=== PATIENT | male | born 1995 | race Caucasian/White ===

== ENCOUNTER 2017-11-06 15:06 | Emergency (ER) | payer OTHER ==
[2017-11-06 15:09] VITALS: BMI 32.8
[2017-11-06] MEDS ORDERED: NS 1000 ML 1,000 ML IV ONE (15:33)
[2017-11-06] MEDS ORDERED: PHENERGAN INJ 25 MG IV ONE (15:33)
[2017-11-06] MEDS ORDERED: TORADOL 30 MG VIAL IVP ONE (15:34)
--- NOTE | 2017-11-06 15:34 | DR.ABDMALE ---
HPI - Time seen Time seen: 15:22 - PCP Primary Care Physician: NFD - Complaint Chief Complaint Doctors Comments: abdominal pain between epigastrium to umbilicus. this started about 4 hrs [employer]IOR [employer] here. He described this as if someone is ripping him. It's non-radiating. He has had nausea + vomitting. Chief Complaint:: PT. C/O ABDOMINAL PAIN THAT BEGAN 4 HOURS AGO. PT. HAS A HX. OF PANCREATITIS. PT. ALSO C/O N/V. - Reviewed Nurses Notes Review: Yes - Mode of arrival Mode of Arrival: Wheelchair - Timing Onset of Chief Complaint: 11/06/17 PMH - PMH Past Medical History: Yes Past Medical History Comment: PANCREATITIS Past Surgical History: Yes Surgical History: Cholecystectomy - Family History History of Family Medical Conditions: Yes Family Medical History: Diabetes Mellitus, Cancer - Social History Does patient currently use any type of tobacco product: No Have you used tobacco products in the last 12 months: No Type of Tobacco Use: None Does any household member use tobacco: No Alcohol Use: None Do you use any recreational Drugs:: No Lives With: Spouse Lives Where: Home - infectious screening In the last 2 months have you had wt loss of >10#?: NO Have you had fever, night sweats or hemotysis?: No Have you traveled outside the country in the last 6 months?: No Isolation: Standard ROS - Review of Systems Constitutional: No Symptoms Reported Eyes: No Symptoms Reported ENTM: No Symptoms Reported Respiratoy: No Symptoms Reported Cardiovascular: No Symptoms Reported Gastrointestinal/Abdominal: Abdominal Pain, Nausea, Vomiting Genitourinary: No Symptoms Reported Neurological: No Symptoms Reported Musculoskeletal: No Symptoms Reported Integumentary: No Symptoms Reported Hematologic/Lymphatic: No Symptoms Reported Endocrine: No Symptoms Reported Psychiatric: No Symptoms Reported All Other Systems: Reviewed and Negative PE - Vital Signs Vital Signs: Temp Pulse Resp BP Pulse Ox 11/06/17 15:06 97.2 F L 81 17 138/84 97 08/16/15 10:14 128/85 - General Limitations: No Limitations General Appearance: Alert, In No Apparent Distress - Head Head Exam: Normal Inspection - Eyes Eye exam: Normal Appearance - ENT ENT Exam: Normal Exam - Neck Neck Exam: Normal Inspection - Chest Chest Inspection: Normal Inspection - Respiratory Respiratory Exam: Normal Lung Sounds Bilat - Cardiovascular Cardiovascular Exam: Regular Rate, Normal Rhythm, +S1, +S2 - Abdominal Exam Abdominal Exam: Normal Inspection, Normal Bowel Sounds, Soft, Tenderness Abdominal Tenderness: Epigastrium - Rectal Rectal Exam: Deferred - Back Back Exam: Normal Inspection - Extremeties Extremities Exam: Normal Inspection - Exam: Male: Deferred - Neurologic Neurological Exam: Alert, Oriented X3 - Psychiatric Psychiatric Exam: Normal Affect, Normal Mood - Skin Skin Exam: Warm, Dry, Intact, Normal Color Course - Reevaluation 1st: Improved 2nd: Improved - Education/Counseling Education/Counseling: Patient, Family, Education, Counseling Educated On: Treatment, Diagnosis, Prognosis, Needs for Follow Up ROR - Labs Reviewed Result Diagrams: 11/06/17 15:40 11/06/17 15:40 Laboratory: WBC 17.9 X10^3/uL (3.6-10.0) H 11/06/17 15:40 RBC 5.56 X10^6/uL (4.7-6.0) 11/06/17 15:40 Hgb 17.7 g/dL (13.5-18.0) 11/06/17 15:40 Hct 50.0 % (42.0-54.0) 11/06/17 15:40 MCV 90.0 fL (80.0-100.0) 11/06/17 15:40 MCH 31.8 pg (27.0-34.0) 11/06/17 15:40 MCHC 35.3 g/dL (33.0-35.0) H 11/06/17 15:40 RDW 12.3 % (11.6-16.5) 11/06/17 15:40 Plt Count 321 X10^3/uL (150.0-450.0) 11/06/17 15:40 MPV 8.3 fL (7.4-11.0) 11/06/17 15:40 Neut % (Auto) 89.9 % (42.0-75.0) H 11/06/17 15:40 Lymph % (Auto) 4.4 % (21.0-51.0) L 11/06/17 15:40 [place] % (Auto) 4.2 % (0.0-13.0) 11/06/17 15:40 Eos % (Auto) 1.2 % (0.9-2.9) 11/06/17 15:40 Baso % (Auto) 0.3 % (0.2-1.0) 11/06/17 15:40 Neut # (Auto) 16.1 x10^3/uL (2.2-4.8) H 11/06/17 15:40 Lymph # (Auto) 0.8 X10^3/uL (1.3-2.9) L 11/06/17 15:40 [place] # (Auto) 0.8 x10^3/uL (0.3-0.8) 11/06/17 15:40 Eos # (Auto) 0.2 x10^3/uL (0.0-0.2) 11/06/17 15:40 Baso # (Auto) 0.1 X10^3/uL (0.0-0.1) 11/06/17 15:40 Absolute Nucleated RBC 0.0 /100WBC 11/06/17 15:40 Sodium 138 mmol/L (136-145) 11/06/17 15:40 Corrected Sodium 139 mmol/L (136-145) 11/06/17 15:40 Potassium 4.0 mmol/L (3.5-5.1) 11/06/17 15:40 Chloride 100 mmol/L (98-107) 11/06/17 15:40 Carbon Dioxide 29.9 mmol/L (21-32) 11/06/17 15:40 BUN 14 mg/dL (7-18) 11/06/17 15:40 Creatinine 1.28 mg/dL (0.70-1.30) 11/06/17 15:40 Est GFR (MDRD) Af Amer > 60 (>60) 11/06/17 15:40 Est GFR (MDRD) Non-Af > 60 (>60) 11/06/17 15:40 Glucose 132 mg/dL (65-99) H 11/06/17 15:40 Calcium 9.2 mg/dL (8.5-10.1) 11/06/17 15:40 Corrected Calcium TNP 11/06/17 15:40 Total Bilirubin 0.80 mg/dL (0.2-1.0) 11/06/17 15:40 AST 22 Units/L (15-37) 11/06/17 15:40 ALT 46 Units/L (12-78) 11/06/17 15:40 Alkaline Phosphatase 106 Units/L (46-116) 11/06/17 15:40 Total Protein 8.8 g/dL (6.4-8.2) H 11/06/17 15:40 Albumin 4.6 g/dL (3.4-5.0) 11/06/17 15:40 Globulin 4.2 g/dL (2.5-4.5) 11/06/17 15:40 Albumin/Globulin Ratio 1.1 Ratio (1.1-2.1) 11/06/17 15:40 Amylase 61 Units/L (25-115) 11/06/17 15:40 Lipase 178 Units/L (73-393) 11/06/17 15:40 - XRAY XRAY Interpreted by: Radiologist (Contrasted CT Abd./pelvis: no acute pathology. ), Self (normal) - Diagnosis Discharge Problem: Epigastric abdominal pain - Discharge Plan Disposition: HOME, SELF-CARE Condition: Stable - Follow ups/Referrals Follow ups/Referrals: NFD,None [Primary Care Provider] - 3 days - Instructions Instructions: Abdominal Pain, Adult, [id number]
[2017-11-06] MEDS ORDERED: NS 1000 ML 1,000 ML ONE (15:43)
[2017-11-06] MEDS ORDERED: TORADOL 30 MG VIAL ONE (15:44)
[2017-11-06] MEDS ORDERED: PHENERGAN INJ 25 MG ONE (15:44)
[2017-11-06 15:56] LABS: BASOPHILS # (AUTO) 0.1 X10^3/uL (0.0-0.1); BASOPHILS % (AUTO) 0.3 % (0.2-1.0); EOSINOPHILS # (AUTO) 0.2 x10^3/uL (0.0-0.2); EOSINOPHILS % (AUTO) 1.2 % (0.9-2.9); HEMOGLOBIN 17.7 g/dL (13.5-18.0); LYMPHOCYTES # (AUTO) 0.8 X10^3/uL (1.3-2.9); LYMPHOCYTES % (AUTO) 4.4 % (21.0-51.0); MEAN CORPUSCULAR HEMOGLOBIN 31.8 pg (27.0-34.0); MEAN CORPUSCULAR HGB CONC 35.3 g/dL (33.0-35.0); MEAN PLATELET VOLUME 8.3 fL (7.4-11.0); MONOCYTES # (AUTO) 0.8 x10^3/uL (0.3-0.8); MONOCYTES % (AUTO) 4.2 % (0.0-13.0); NEUTROPHILS # (AUTO) 16.1 x10^3/uL (2.2-4.8); NEUTROPHILS % (AUTO) 89.9 % (42.0-75.0); PLATELET COUNT 321 X10^3/uL (150.0-450.0); RED BLOOD COUNT 5.56 X10^6/uL (4.7-6.0); RED CELL DISTRIBUTION WIDTH 12.3 % (11.6-16.5); WHITE BLOOD COUNT 17.9 X10^3/uL (3.6-10.0)
[2017-11-06 16:22] LABS: ALANINE AMINOTRANSFERASE 46 Units/L (12-78); ALBUMIN 4.6 g/dL (3.4-5.0); ALKALINE PHOSPHATASE 106 Units/L (46-116); AMYLASE 61 Units/L (25-115); ASPARTATE AMINO TRANSFERASE 22 Units/L (15-37); BLOOD UREA NITROGEN 14 mg/dL (7-18); CALCIUM 9.2 mg/dL (8.5-10.1); CARBON DIOXIDE 29.9 mmol/L (21-32); CHLORIDE 100 mmol/L (98-107); COR NA(FOR HYPERGLY) 139 mmol/L (136-145); CREATININE 1.28 mg/dL (0.70-1.30); LIPASE 178 Units/L (73-393); SODIUM 138 mmol/L (136-145); TOTAL PROTEIN 8.8 g/dL (6.4-8.2); eGFR BLACK RACES > 60 (>60); eGFR NON BLACK RACES > 60 (>60)
--- NOTE | 2017-11-06 16:58 | RAD ---
Examination: Portable AP chest History: Abdominal pain Findings: Normal appearance of heart, lungs, mediastinum and pleural spaces. Impression: No acute or significant findings. Reported By:
[2017-11-06] MEDS ORDERED: NS 500 ML IV 500 ML IV ONE (17:22)
--- NOTE | 2017-11-06 18:15 | CT ---
HISTORY: Abdominal pain. Study: CT abdomen and pelvis with contrast Comparison: CT abdomen/pelvis dated August 16, 2015. Technique: Multiple axial images of the abdomen and pelvis were obtained from the lung bases to the pubic symphy sis after the administration of IV contrast. Dose reduction techniques including Automated Exposure Control (AEC) and adjustment of mA and kV were utilized. Findings: The visualized portions of the lung bases are unremarkable. The liver, spleen, pancreas, kidneys, an d adrenal glands are unremarkable in their CT appearance. The gallbladder is surgically absent. No s ignificant mesenteric lymphadenopathy or stranding can be observed. No free fluid or free air is see n within the abdomen. Limited evaluation of the large and small bowel secondary to lack of oral cont rast and collapse. The appendix appears normal. The urinary bladder is grossly unremarkable. The bon y structures are grossly intact. IMPRESSION: No CT evidence of acute abdominal/pelvic pathology. Reported By:
[2017-11-06] MEDS ORDERED: MORPHINE SULFATE INJ 2 MG INJ IVP ONE (18:23)
[2017-11-06] MEDS ORDERED: MORPHINE SULFATE INJ 2 MG INJ ONE (18:24)
[2017-11-06 19:57] VITALS: BP 122/78
== END 2017-11-06 19:57 | disposition home or self-care (01) ==
LOC: ER 15:15
DX: R10.13 Epigastric pain (principal)
CPT/HCPCS: 36415; 71045; 74177; 80053; 82150; 83690; 85025; 96365; 96374; 96375; 99283; 99284; A4222; J1885; J2270; J2550

== ENCOUNTER 2020-05-08 11:08 | Observation (INO) ==
--- NOTE | 2020-05-08 11:11 | DR.ABDMALE ---
HPI Time seen Time Seen by Provider: 05/08/20 11:10 HPI comment HPI Comment: PATIENT IS 24YR OLD MALE IN ER WITH ABDOMINAL PAIN TODAY AND NAUSEA AND VOMITING TIMES 3 DAYS. PATIENT SAID PAIN IS DIFFUSED, 10/10 AND BURNING AND SHARP. PAIN RADIATING TO THE BACK. PATIENT IS NOT KEEPING DOWN FOOD OR FLUIDS. HE IS WEAK. HISTORY PACREATITIS. NO FEVER OR DYSURIA. HAVE HAD CHOLECYSTECTOMY IN THE PAST. Complaint Chief Complaint Doctors Comments: ABDOMINAL PAIN TODAY, NAUSEA AND VOMITING TIMES 3 DAYS. COVID-19 Coronavirus risk:travel/contact w/high risk person: No Has patient experienced Coronavirus symptoms: No Reviewed Nurses Notes Review: Yes Mode of arrival Mode of Arrival: Ambulatory Timing Came on: Suddenly Duration Duration: Constant Duration: Days Location Location: Diffuse Severity Severity: Severe Quality Quality: Burning and Sharp Context Onset: Suddenly History of: Abdominal surgery (HAVE HAD CHOLECYSTECTOMY.) Modifying factors Worsening Factors: Food Improving Factors: Lying Still Associated signs and symptoms Associated Signs and Symptoms: Nausea and Vomiting Other history Other History: HISTORY PACREATITIS. PMH PMH Past Surgical History: Yes Surgical History: Cholecystectomy Family History Family Medical History: Diabetes Mellitus and Cancer Social History Do you use any recreational Drugs:: No ROS Review of Systems Constitutional: See HPI, Weakness and Fatigue; negative Fever Eyes: No Symptoms Reported and See HPI ENTM: No Symptoms Reported and See HPI; negative Nose Discharge and Nose Congestion Respiratoy: No Symptoms Reported and See HPI; negative Moist Cough, Short of Breath and Wheezing Cardiovascular: No Symptoms Reported and See HPI; negative Chest Pain, Edema and Palpitations Gastrointestinal/Abdominal: No Symptoms Reported, See HPI, Abdominal Pain, Nausea and Vomiting; negative Constipation and Diarrhea Genitourinary: No Symptoms Reported and See HPI; negative Dysuria, Frequency and Hematuria Neurological: See HPI and Weakness; negative Headache and Dizziness Musculoskeletal: No Symptoms Reported and See HPI; negative Back Pain and Muscle Pain Integumentary: No Symptoms Reported and See HPI; negative Change in Color, Rash and Juandice Hematologic/Lymphatic: No Symptoms Reported and See HPI; negative Easy Bruising and Swollen Glands Endocrine: No Symptoms Reported and See HPI; negative Increased Thirst and Inc reased Urine Psychiatric: No Symptoms Reported and See HPI All Other Systems: Reviewed and Negative PE Vital Signs Vital Signs: Temp Pulse Resp BP BP Pulse Ox 05/08/20 18:15 72 98 05/08/20 18:00 68 98 05/08/20 17:45 77 98 05/08/20 17:42 73 98 05/08/20 13:31 20 05/08/20 12:21 18 05/08/20 12:10 18 05/08/20 11:44 71 18 111/68 98 05/08/20 11:40 18 05/08/20 11:13 98.3 F 106 H 24 143/94 98 07/16/19 11:17 125/81 General Limitations: No Limitations General Appearance: Alert and In No Apparent Distress Head Head Exam: Normal Inspection Eyes Eye exam: Normal Appearance and PERRL; negative Scleral Icterus and Conjunctival Injection ENT ENT Exam: Normal Exam, Normal Oropharynx, Normal External Ear Exam and TM's Normal Bilaterally Neck Neck Exam: Normal Inspection and Trachea Midline; negative Tenderness and Lymphadenopathy Chest Chest Inspection: Normal Inspection and Symmetric Chest Wall Rise; negative Tenderness Respiratory Respiratory Exam: Normal Lung Sounds Bilat; negative Accessory Muscle Use, Chest Wall Tenderness and Respiratory Distress Respiratory Exam: Bilateral: Clear to Auscultation Cardiovascular Cardiovascular Exam: Regular Rate, Normal Rhythm and Normal Heart Sounds; negative Systolic Murmur and Diastolic Murmur Abdominal Exam Abdominal Exam: Normal Inspection, Normal Bowel Sounds, Soft and Tenderness; negative Organomegaly and Mass Abdominal Tenderness: Severe Rectal Rectal Exam: Deferred Back Back Exam: Normal Inspection; negative (R) CVA Tenderness and (L) CVA Tenderness Extremeties Extremities Exam: Normal Inspection and Normal Capillary Refill; negative Tenderness, Edema and Calf Tenderness Exam: Male: Deferred Neurologic Neurological Exam: Alert, Oriented X3 and CN II-XII Intact; negative Motor Sensory Deficit Psychiatric Psychiatric Exam: Normal Affect and Normal Mood Skin Skin Exam: Warm, Dry, Intact and Normal Color MDM Differential Diagnosis Differential Diagnosis: Bowel Obstruction, Constipation, Diverticular disease, Gastritus/PUD, Gastroenteritis, Inflammatory BD, Pancreatitis, Urinary tract infection and Urolithiasis COURSE Treatment Treatment: SEE ORDERS. NS 1L IV BOLUS, DEMOROL 25MG IV, FOFRAN 4MG IV. PAIN SLIGHTLY RELIEVED. NAUSEA IMPROVED. DEMOROL 25MG IV. PATIENT STILL HAVING SEVERE PAIN. TORADOL 30MG IV AND PEPCID 20MG IVPB. Reevaluation 1st: Unchanged (NAUSEA IMPROVED. PAIN SLIGHTLY IMPROVED.STILL 9/10 PAIN.) 2nd: Improved (PAIN SLIGHTLY IMPROVED 8/10.) 3rd: Improved (PAIN IMPROVING, HAVING 7/10 PAIN/) Consultation Consultation Comments: SURGICAL CONSULT. DR. SPARROW IN ER AND HAVE EVALUATED PATIENT. RECOMMEND TO ADMIT PATIENT. DR. BAILEY NURSING INFORMATION SYSTEMS COORDINATOR FOR MEDICINE WILL ADMIT PATIENT. Education/Counseling Education/Counseling: Patient Educated On: Diagnosis ROR Labs Reviewed Laboratory Results Reviewed?: Yes Result Diagrams: 05/09/20 05:35 05/09/20 05:35 Laboratory: WBC 11.8 X10^3/uL (3.6-10.0) H 05/08/20 11: RBC 5.40 X10^6/uL (4.7-6.0) 05/08/20 11:21 Hgb 16.8 g/dL (13.5-18.0) 05/08/20 11: Hct 48.0 % (42.0-54.0) 05/08/20 11:21 MCV 88.7 fL (80.0-100.0) 05/08/20 11:21 MCH 31.2 pg (27.0-34.0) 05/08/20 11:21 MCHC 35.1 g/dL (33.0-35.0) H 05/08/20 11: RDW 12.9 % (11.6-16.5) 05/08/20 11:21 Plt Count 391 X10^3/uL (150.0-450.0) 05/08/20 11: MPV 7.5 fL (7.4-11.0) 05/08/20 11: Neut % (Auto) 62.7 % (42.0-75.0) 05/08/20 11:21 Lymph % (Auto) 28.2 % (21.0-51.0) 05/08/20 11:21 [place] % (Auto) 7.6 % (0.0-13.0) 05/08/20 11: Eos % (Auto) 0.9 % (0.9-2.9) 05/08/20 11:21 Baso % (Auto) 0.6 % (0.2-1.0) 05/08/20 11:21 Neut # (Auto) 7.4 x10^3/uL (2.2-4.8) H 05/08/20 11:21 Lymph # (Auto) 3.3 X10^3/uL (1.3-2.9) H 05/08/20 11:21 [place] # (Auto) 0.9 x10^3/uL (0.3-0.8) H 05/08/20 11:21 Eos # (Auto) 0.1 x10^3/uL (0.0-0.2) 05/08/20 11:21 Baso # (Auto) 0.1 X10^3/uL (0.0-0.1) 05/08/20 11:21 Absolute Nucleated RBC 0.0 /100WBC 05/08/20 11:21 Sodium 139 mmol/L (136-145) 05/08/20 11:21 Corrected Sodium TNP 05/08/20 11:21 Potassium 3.4 mmol/L (3.5-5.1) L 05/08/20 11:21 Chloride 99 mmol/L (98-107) 05/08/20 11:21 Carbon Dioxide 26.2 mmol/L (21-32) 05/08/20 11:21 BUN 7 mg/dL (7-18) 05/08/20 11:21 Creatinine 1.15 mg/dL (0.70-1.30) 05/08/20 11:21 Est GFR (MDRD) Af Amer > 60 (>60) 05/08/20 11:21 Est GFR (MDRD) Non-Af > 60 (>60) 05/08/20 11:21 Glucose 103 mg/dL (65-99) H 05/08/20 11:21 Calcium 9.6 mg/dL (8.5-10.1) 05/08/20 11:21 Corrected Calcium TNP 05/08/20 11:21 Total Bilirubin 0.80 mg/dL (0.2-1.0) 05/08/20 11:21 AST 21 Units/L (15-37) 05/08/20 11:21 ALT 45 Units/L (12-78) 05/08/20 11:21 Alkaline Phosphatase 95 Units/L (46-116) 05/08/20 11:21 Total Protein 8.6 g/dL (6.4-8.2) H 05/08/20 11:21 Albumin 4.4 g/dL (3.4-5.0) 05/08/20 11:21 Globulin 4.2 g/dL (2.5-4.5) 05/08/20 11:21 Albumin/Globulin Ratio 1.0 Ratio (1.1-2.1) L 05/08/20 11:21 Amylase 105 Units/L (25-115) 05/08/20 11:21 Lipase 438 Units/L (73-393) H 05/08/20 11:21 XRAY XRAY Interpreted by: Radiologist (REPORTS NOTED AND DISCUSSED WITH PATIENT.) and Self Opioid Opioid Risk Tool Age (Omer box if 16-45): Yes History of Preadolescent Sexual Abuse: No Total: 1 Total Score Risk Category: Low Risk Copyright: Walter ROCHA predicting aberrant behaviors Diagnosis Discharge Problem: Acute pancreatitis, Abdominal pain Instructions Instructions: Chronic Pancreatitis Acute Pancreatitis, [id number] Abdominal Pain, Adult, [id number] Nausea and Vomiting, Adult, [id number] Forms: Precautions for COVID19 Patient Portal Social Distancing
[2020-05-08] MEDS ORDERED: ZOFRAN INJ 4 MG VIAL IVP ONE (11:22)
[2020-05-08] MEDS ORDERED: DEMEROL INJ IVP ONE ×2 (11:22→12:10)
[2020-05-08] MEDS ORDERED: NS 1000 ML 1,000 ML IV ONE (11:23)
[2020-05-08] MEDS ORDERED: ZOFRAN INJ 4 MG VIAL ONE ×2 (11:34→20:02)
[2020-05-08] MEDS ORDERED: NS 1000 ML 1,000 ML ONE ×2 (11:34→20:03)
[2020-05-08] MEDS ORDERED: DEMEROL INJ ONE ×2 (11:34→12:10)
[2020-05-08 11:35] LABS: BASOPHILS # (AUTO) 0.1 X10^3/uL (0.0-0.1); BASOPHILS % (AUTO) 0.6 % (0.2-1.0); EOSINOPHILS # (AUTO) 0.1 x10^3/uL (0.0-0.2); EOSINOPHILS % (AUTO) 0.9 % (0.9-2.9); HEMOGLOBIN 16.8 g/dL (13.5-18.0); LYMPHOCYTES # (AUTO) 3.3 X10^3/uL (1.3-2.9); LYMPHOCYTES % (AUTO) 28.2 % (21.0-51.0); MEAN CORPUSCULAR HEMOGLOBIN 31.2 pg (27.0-34.0); MEAN CORPUSCULAR HGB CONC 35.1 g/dL (33.0-35.0); MEAN CORPUSCULAR VOLUME 88.7 fL (80.0-100.0); MEAN PLATELET VOLUME 7.5 fL (7.4-11.0); MONOCYTES # (AUTO) 0.9 x10^3/uL (0.3-0.8); MONOCYTES % (AUTO) 7.6 % (0.0-13.0); NEUTROPHILS # (AUTO) 7.4 x10^3/uL (2.2-4.8); NEUTROPHILS % (AUTO) 62.7 % (42.0-75.0); PLATELET COUNT 391 X10^3/uL (150.0-450.0); RED CELL DISTRIBUTION WIDTH 12.9 % (11.6-16.5); WHITE BLOOD COUNT 11.8 X10^3/uL (3.6-10.0)
[2020-05-08 11:46] LABS: ALANINE AMINOTRANSFERASE 45 Units/L (12-78); ALBUMIN 4.4 g/dL (3.4-5.0); ALKALINE PHOSPHATASE 95 Units/L (46-116); AMYLASE 105 Units/L (25-115); ASPARTATE AMINO TRANSFERASE 21 Units/L (15-37); BLOOD UREA NITROGEN 7 mg/dL (7-18); CALCIUM 9.6 mg/dL (8.5-10.1); CARBON DIOXIDE 26.2 mmol/L (21-32); CHLORIDE 99 mmol/L (98-107); CREATININE 1.15 mg/dL (0.70-1.30); LIPASE 438 Units/L (73-393); SODIUM 139 mmol/L (136-145); TOTAL PROTEIN 8.6 g/dL (6.4-8.2); eGFR NON BLACK RACES > 60 (>60)
--- NOTE | 2020-05-08 12:50 | CT ---
HISTORYABD PAINSTUDYABDOMEN/PELVIS WITH CONCOMPARISONNone availableTECHNIQUEAxial images through the abdomen and pelvis were performed with intravenous contrast. CT scan was performed following ALARA (As low as Reasonably Achievable).Coronal and Sagittal reformatted images were performed.FINDINGSlung bases demonstrate no focal abnormalities. The liver spleen and pancreas demonstrate no abnormalities. Patient is status post cholecystectomy. No intra or extrahepatic biliary dilatation. No adrenal masses. There bilateral normal enhancing kidneys without hydronephrosis. The stomach is not distended,no abnormal dilated small bowel loops. No evidence of a small-bowel obstruction, no focal dilatation of the abdominal aorta, there is no evidence of appendicitis no colitis.Tiny umbilical hernia,Pelvis: No free fluid,the prostate is not enlarged, no adnexal masses, no pelvic or inguinal adenopathy, no significant diverticulitis.Bone windows no evidence of aggressive bone lesions, no acute fractures.IMPRESSIONNo acute intra-abdominal abnormalities.Electronically signed by: Elizabeth Berrios (May 08, 2020 12:48:58)
[2020-05-08] MEDS ORDERED: TORADOL 30 MG VIAL IVP ONE (13:10)
[2020-05-08] MEDS ORDERED: PEPCID 20 MG IV PREMIX* 20 MG/50 ML BAG IV ONE ×3 (13:11→20:03)
[2020-05-08] MEDS ORDERED: TORADOL 30 MG VIAL ONE (13:27)
[2020-05-08] MEDS ORDERED: ATIVAN INJ 2 MG VIAL ONE (17:38)
[2020-05-08] MEDS: ATIVAN INJ 2 MG VIAL IVP ONE (17:47)
--- NOTE | 2020-05-08 18:43 | RAD ---
CHEST, 1 VIEWHISTORY: CHEST PAINStudy: Single view of the chest.Comparison:NoneFindings:The cardiomediastinal silhouette is normal.No focal consolidations, pleural effusions or pneumothorax. Osseous structures demonstrate no acute abnormality.IMPRESSION:1. No acute cardiopulmonary process.Electronically signed by: MARTHA CEVALLOS (May 08, 2020 18:40:55)
[2020-05-08] MEDS ORDERED: PEPCID 20 MG IV PREMIX* 20 MG/50 ML BAG IV PRN (19:05)
[2020-05-08] MEDS ORDERED: MORPHINE SULFATE INJ 4 MG ONE (20:05)
[2020-05-08] MEDS: MORPHINE SULFATE INJ 2 MG INJ IVP PRN (20:27)
[2020-05-08] MEDS: NS 1000 ML 1,000 ML IV SCH (20:27)
[2020-05-09 02:34] VITALS: BMI 30.4
[2020-05-09] MEDS: ZOFRAN INJ 4 MG VIAL IVP PRN ×2 (02:55→10:00)
[2020-05-09] MEDS: MORPHINE SULFATE INJ 2 MG INJ IVP PRN ×3 (02:55→15:48)
[2020-05-09] MEDS: NS 1000 ML 1,000 ML IV SCH ×3 (03:02→10:10)
[2020-05-09 03:24] LABS: BILIRUBIN,URINE NEGATIVE (NEGATIVE); BLOOD/HEMOGLOBIN,URINE NEGATIVE (NEGATIVE); GLUCOSE, URINE NEGATIVE (NEGATIVE); KETONES,URINE NEGATIVE (NEGATIVE); LEUKOCYTE ESTERASE ,URINE NEGATIVE (NEGATIVE); NITRITES,URINE NEGATIVE (NEGATIVE); PROTEIN,URINE 2+ (NEGATIVE); UROBILINOGEN,URINE 1+ (NORMAL)
[2020-05-09 03:30] LABS: APPEARANCE,URINE CLEAR (CLEAR); BACTERIA,URINE NEGATIVE /HPF (NEGATIVE); COLOR,URINE AMBER (YELLOW); RBC,URINE 0-2 /HPF (0-3); SQUAMOUS EPITHELIAL CELL,UR RARE /HPF (NEGATIVE)
[2020-05-09 06:22] LABS: BASOPHILS # (AUTO) 0.1 X10^3/uL (0.0-0.1); BASOPHILS % (AUTO) 0.8 % (0.2-1.0); EOSINOPHILS # (AUTO) 0.2 x10^3/uL (0.0-0.2); EOSINOPHILS % (AUTO) 2.3 % (0.9-2.9); HEMATOCRIT 39.1 % (42.0-54.0); HEMOGLOBIN 13.7 g/dL (13.5-18.0); LYMPHOCYTES # (AUTO) 3.1 X10^3/uL (1.3-2.9); LYMPHOCYTES % (AUTO) 31.4 % (21.0-51.0); MEAN CORPUSCULAR HEMOGLOBIN 31.2 pg (27.0-34.0); MEAN CORPUSCULAR HGB CONC 35.2 g/dL (33.0-35.0); MEAN CORPUSCULAR VOLUME 88.8 fL (80.0-100.0); MEAN PLATELET VOLUME 7.9 fL (7.4-11.0); MONOCYTES # (AUTO) 0.6 x10^3/uL (0.3-0.8); MONOCYTES % (AUTO) 6.6 % (0.0-13.0); NEUTROPHILS # (AUTO) 5.8 x10^3/uL (2.2-4.8); NEUTROPHILS % (AUTO) 58.9 % (42.0-75.0); PLATELET COUNT 291 X10^3/uL (150.0-450.0); RED CELL DISTRIBUTION WIDTH 12.9 % (11.6-16.5); WHITE BLOOD COUNT 9.8 X10^3/uL (3.6-10.0)
[2020-05-09 06:41] LABS: ALANINE AMINOTRANSFERASE 33 Units/L (12-78); ALBUMIN 3.3 g/dL (3.4-5.0); ALKALINE PHOSPHATASE 75 Units/L (46-116); AMYLASE 111 Units/L (25-115); ASPARTATE AMINO TRANSFERASE 15 Units/L (15-37); BLOOD UREA NITROGEN 9 mg/dL (7-18); CALCIUM 8.8 mg/dL (8.5-10.1); CARBON DIOXIDE 26.4 mmol/L (21-32); CHLORIDE 105 mmol/L (98-107); COR CA(FOR HYPOALB) 9.4 mg/dL (8.5-10.1); CREATININE 0.93 mg/dL (0.70-1.30); LIPASE 502 Units/L (73-393); SODIUM 141 mmol/L (136-145); TOTAL PROTEIN 6.6 g/dL (6.4-8.2); eGFR NON BLACK RACES > 60 (>60)
--- NOTE | 2020-05-09 10:37 | DR.H&P ---
H&P - History & Physical for Day of: H&P Date: 05/08/20 - Chief Complaint Chief Complaint: ABDOMINAL PAIN, NAUSEA, VOMITING - History of Present Illness History of Present Illness: IS A 24 YEAR OLD PATIENT OF DR.STEVE ZIMMERMAN. HE PRESENTED TO THE ER WITH COMPLAINTS OF NAUSEA, VOMITING, AND ABDOMINAL PAIN THAT STARTED APPROXIMATELY THREE DAYS PRIOR TO ARRIVAL. ABDOMINAL PAIN IS DESCRIBED SHARP, EPIGASTRIC AND LUQ, AND IS RATED 7/10. HE HAS A HISTORY OF CHRONIC PANCREATITIS. HE REPORTS TAKING ZOFRAN FOR NAUSEA, BUT DENIED IMPROVEMENT IN SYMPTOMS DESPITE USE OF IT. PMH INCLUDES A CHOLECYSTECTOMY. ON ARRIVAL TO THE HOSPITAL, VITALS WERE 98.3-106-24-98%-143/94. LABS WERE OBTAINED. ABNORMAL LAB VALUES INCLUDE THE FOLLOWING: WBC 11.8, POTASSIUM 3.4, GLUCOSE 103, TOTAL PROTEIN 8.6, LIPASE 438. URINALYSIS UNREMARKABLE. AN ABDOMEN/PELVIS XRAY WITH CONTRAST WAS OBTAINED AND REVEALED: No acute intra-abdominal abnormalities. A CHEST XRAY WAS OBTAINED AND REVEALED: The cardiomediastinal silhouette is normal. No focal consolidations, pleural effusions or pneumothorax. Osseous structures demonstrate no acute abnormality. EKG REVEALED: SINUS RHYTHM WITH HR 70. WHILE IN THE ER, HE WAS GIVEN ATIVAN 1MG IV X 1, PEPCID 20MG IV X 1, TORADOL 30MG IV X 1, DEMEROL 25MG IV X 2, ZOFRAN 4MG IV X 1, AND A NORMAL SALINE 1 LITER BOLUS. HE REPORTED ONLY SLIGHT IMPROVEMENT IN SYMPTOMS. HE WAS ADMITTED TO THE HOSPITAL FOR FURTHER EVALUATION AND TREATMENT OF ACUTE PANCREATITIS WITH INTRACTABLE ABDOMINAL PAIN AND NAUSEA AND VOMITING. HE WAS STARTED ON NORMAL SALINE AT 100 ML/HR, PEPCID 20MG IV BID, MORPHINE 4MG IV Q6H PRN, AND ZOFRAN 4MG IV Q6H PRN. WE WILL CONSULT WITH , GENERAL SURGERY. OTHERWISE, WE PLAN TO FOLLOW UP WITH AM LABS AND CONTINUE TO MONITOR. - Past Medical History Additional Medical History: CHRONIC PANCREATITIS - Past Surgical History Surgical History: Cholecystectomy - Family History Family Medical History: Diabetes Mellitus, Cancer, [place], Coronary Artery Disease, Hypertension - Social History Does patient currently use any type of tobacco product: No Have you used tobacco products in the last 12 months: No Type of Tobacco Use: None Does any household member use tobacco: No Alcohol Use: None Drug Use: None - Medications Home Medications: No Known Drug Allergies Allergy (Verified 07/27/18 17:46) CONTINUE taking the following medications NK 05/09/20 [History] - Review of Systems Constitutional: No Symptoms Reported Eyes: No Symptoms Reported ENT: No Symptoms Reported Respiratory: No Symptoms Reported Cardiovascular: No Symptoms Reported Gastrointestinal: See HPI, Nausea, Vomiting, Abdominal Pain Genitourinary: No Symptoms Reported Musculoskeletal: No Symptoms Reported Skin: No Symptoms Reported Neurological: No Symptoms Reported - Physical Exam Vital Signs: Temperature 98.3 F Pulse Rate [Left Radial] 67 Pulse Rate 86 Respiratory Rate 20 Blood Pressure [Left Arm] 138/73 Blood Pressure 142/86 O2 Sat by Pulse Oximetry 97 Oriented: Normal Eyes: Normal Ear: Normal Nose: Normal Throat: Normal Respiratory: Clear Throughout Cardiovascular: Normal : Normal Auscultation: Bowel Sounds: Normal Palpation: Normal Tenderness: LUQ, Epigastric, Moderate. negative: Rebound, Guarding, Rigidity Skin: Normal Musculoskeletal: Normal Psychiatric: Normal Mood Description: Calm Affect: Normal Speech Pattern: Clear - Assessment/Plan (1) Acute pancreatitis Qualifiers: Pancreatitis type: unspecified pancreatitis type Acute pancreatitis complication: unspecified Qualified Code(s): K85.90 - Acute pancreatitis without necrosis or infection, unspecified Status: Acute Plan: ADMIT, NORMAL SALINE AT 100 ML/HR, PEPCID 20MG IV BID, MORPHINE 4MG IV Q6H PRN, AND ZOFRAN 4MG IV Q6H PRN (2) Abdominal pain Qualifiers: Abdominal location: left upper quadrant Qualified Code(s): R10.12 - Left upper quadrant pain Status: Acute (3) Intractable nausea and vomiting Status: Acute - Allergies Allergies/Adverse Reactions: Allergies Allergy/AdvReac Type Severity Reaction Status Date / Time No Known Drug Allergies Allergy Verified 07/27/18 17:46
[2020-05-09 12:18] LABS: CHOL/HDL RATIO 4.4 (0.0-5.0)
[2020-05-09 16:18] VITALS: BP 147/91
== END 2020-05-09 17:05 | disposition home or self-care (01) ==
LOC: ER 11:08 → MED/SURG 11:08
PROVIDERS: ADMIT Internal Medicine; ATTEND Internal Medicine

== ENCOUNTER 2022-12-01 20:08 | Observation (INO) ==
[2022-12-01] MEDS ORDERED: ZOFRAN INJ 4 MG VIAL IVP ONE ×3 (20:20→23:57)
--- NOTE | 2022-12-01 20:20 | DR.ABDMALE ---
HPI Time seen Time Seen by Provider: 12/01/22 20:20 Complaint Chief Complaint Doctors Comments: Patient has h/o pancreatitis and presents with epigastric pain that began today.Patient has sharp pain that is non radiating and nausea and vomiting. Patient denies: fever,hematemesis,hematochezia,back dina n,chest pain. Source [facility] Past Medical History: Anxiety, Depression and Sleep Apnea Past Surgical History: Yes Surgical History: Cholecystectomy Family History Family Medical History: Diabetes Mellitus and Cancer Social History Do you use any recreational Drugs:: No ROS Review of Systems Constitutional: No Symptoms Reported Eyes: No Symptoms Reported ENTM: No Symptoms Reported Respiratoy: No Symptoms Reported Cardiovascular: No Symptoms Reported Gastrointestinal/Abdominal: Abdominal Pain (epigastric), Nausea, Vomiting and Food Intolerance Genitourinary: No Symptoms Reported Neurological: No Symptoms Reported Musculoskeletal: No Symptoms Reported Integumentary: No Symptoms Reported Hematologic/Lymphatic: No Symptoms Reported Endocrine: No Symptoms Reported Psychiatric: No Symptoms Reported All Other Systems: Reviewed and Negative PE Vital Signs Vital Signs: Pulse Resp BP BP Pulse Ox O2 Del Method 12/26/20 18:53 137/87 12/02/22 00:05 20 12/01/22 23:56 180/94 12/01/22 23:56 70 98 12/01/22 23:45 80 98 12/01/22 23:30 52 L 99 12/01/22 23:30 158/84 12/01/22 23:15 62 99 12/01/22 23:00 60 97 12/01/22 23:00 124/84 12/01/22 22:45 62 99 12/01/22 22:36 117/62 12/01/22 22:36 59 L 99 12/01/22 22:30 65 100 12/01/22 22:21 63 98 12/01/22 22:21 136/81 12/01/22 22:16 51 L 100 12/01/22 22:00 61 99 12/01/22 21:45 57 L 99 12/01/22 21:37 74 100 12/01/22 21:37 135/77 12/01/22 21:35 79 100 12/01/22 22:18 24 12/01/22 21:30 74 20 135/77 100 Room Air 12/01/22 21:15 44 L 98 12/01/22 21:06 48 L 100 12/01/22 21:06 128/72 12/01/22 21:05 47 L 99 12/01/22 20:45 53 L 100 12/01/22 20:34 49 L 98 12/01/22 20:36 20 12/01/22 20:29 58 L 26 H 125/76 99 Room Air 07/29/21 17:27 128/77 General Limitations: No Limitations General Appearance: Alert and Anxious Head Head Exam: Normal Inspection Eyes Eye exam: Normal Appearance ENT ENT Exam: Normal Exam Neck Neck Exam: Normal Inspection Chest Chest Inspection: Normal Inspection Respiratory Respiratory Exam: Normal Lung Sounds Bilat Respiratory Exam: Bilateral: Clear to Auscultation Cardiovascular Cardiovascular Exam: Regular Rate and Normal Rhythm Abdominal Exam Abdominal Exam: Normal Inspection and Hypoactive Bowel Sounds; negative Normal Bowel Sounds or Guarding Abdominal Tenderness: Epigastrium Rectal Rectal Exam: Deferred Back Back Exam: Normal Inspection Extremeties Extremities Exam: Normal Inspection Exam: Male: Deferred Neurologic Neurological Exam: Alert and Oriented X3 Psychiatric Psychiatric Exam: Normal Affect and Normal Mood Skin Skin Exam: Warm, Dry, Intact and Normal Color MDM Differential Diagnosis Differential Diagnosis: Gastritus/PUD and Gastroenteritis Other differential diagnosis: Acute Pancreatitis,Obstruction,perforation,bowel ischemia COURSE Treatment Treatment: Patient was brought to an exam room and iv access was initiated.Patient was given pepcid 20mg iv,zofran 4mg iv, morphine 1mg iv x 3 doses, morphine 2mg iv and zofran 4mg iv.Patient has recieved NS 1 Liter iv. Discussed case with Dr Scott ( Physician food concession manager).Dr Varner accepts patient to Medical Floor for further evaluation Patient has been stable in the ED. ROR Labs Reviewed Laboratory Results Reviewed?: Yes Result Diagrams: 12/01/22 20:40 12/01/22 20:40 Laboratory: WBC 15.4 X10^3/uL (3.6-10.0) H 12/01/22 20:40 RBC 5.16 X10^6/uL (4.7-6.0) 12/01/22 20:40 Hgb 16.1 g/dL (13.5-18.0) 12/01/22 20:40 Hct 45.9 % (42.0-54.0) 12/01/22 20:40 MCV 88.9 fL (80.0-100.0) 12/01/22 20:40 MCH 31.2 pg (27.0-34.0) 12/01/22 20:40 MCHC 35.1 g/dL (33.0-35.0) H 12/01/22 20:40 RDW 13.2 % (11.6-16.5) 12/01/22 20:40 Plt Count 314 X10^3/uL (150.0-450.0) 12/01/22 20:40 MPV 8.2 fL (7.4-11.0) 12/01/22 20:40 Neut % (Auto) 88.4 % (42.0-75.0) H 12/01/22 20:40 Lymph % (Auto) 7.8 % (21.0-51.0) L 12/01/22 20:40 [place] % (Auto) 3.3 % (0.0-13.0) 12/01/22 20:40 Eos % (Auto) 0.1 % (0.9-2.9) L 12/01/22 20:40 Baso % (Auto) 0.4 % (0.2-1.0) 12/01/22 20:40 Neut # (Auto) 13.6 x10^3/uL (2.2-4.8) H 12/01/22 20:40 Lymph # (Auto) 1.2 X10^3/uL (1.3-2.9) L 12/01/22 20:40 [place] # (Auto) 0.5 x10^3/uL (0.3-0.8) 12/01/22 20:40 Eos # (Auto) 0.0 x10^3/uL (0.0-0.2) 12/01/22 20:40 Baso # (Auto) 0.1 X10^3/uL (0.0-0.1) 12/01/22 20:40 Absolute Nucleated RBC 0.0 /100WBC 12/01/22 20:40 Sodium 136 mmol/L (136-145) 12/01/22 20:40 Corrected Sodium 137 mmol/L (136-145) 12/01/22 20:40 Potassium 4.3 mmol/L (3.5-5.1) 12/01/22 20:40 Chloride 100 mmol/L (98-107) 12/01/22 20:40 Carbon Dioxide 24.9 mmol/L (21-32) 12/01/22 20:40 BUN 11 mg/dL (7-18) 12/01/22 20:40 Creatinine 1.06 mg/dL (0.70-1.30) 12/01/22 20:40 Est GFR (MDRD) Af Amer > 60 (>60) 12/01/22 20:40 Est GFR (MDRD) Non-Af > 60 (>60) 12/01/22 20:40 Glucose 150 mg/dL (65-99) H 12/01/22 20:40 Lactic Acid 1.3 mmol/L (0.4-2.0) 12/01/22 20:40 Calcium 9.5 mg/dL (8.5-10.1) 12/01/22 20:40 Corrected Calcium TNP 12/01/22 20:40 Total Bilirubin 0.50 mg/dL (0.2-1.0) 12/01/22 20:40 AST 17 Units/L (15-37) 12/01/22 20:40 ALT 36 Units/L (12-78) 12/01/22 20:40 Alkaline Phosphatase 114 Units/L (46-116) 12/01/22 20:40 C-Reactive Protein 5.60 mg/L (0-3.0) H 12/01/22 20:40 Total Protein 8.1 g/dL (6.4-8.2) 12/01/22 20:40 Albumin 4.2 g/dL (3.4-5.0) 12/01/22 20:40 Globulin 3.9 g/dL (2.5-4.5) 12/01/22 20:40 Albumin/Globulin Ratio 1.1 Ratio (1.1-2.1) 12/01/22 20:40 Amylase 615 Units/L (25-115) H 12/01/22 20:40 Lipase 2917 Units/L (73-393) H 12/01/22 20:40 Specimen Type Random urine 12/01/22 22:15 Urine Color Dark yellow (YELLOW) 12/01/22 22:15 Urine Appearance Clear (CLEAR) 12/01/22 22:15 Urine pH 6.0 (5.0 - 8.0) 12/01/22 22:15 Ur Specific [place] 1.010 (1.000-1.030) 12/01/22 22:15 Urine Protein 2+ (NEGATIVE) 12/01/22 22:15 Urine Glucose (UA) Negative (NEGATIVE) 12/01/22 22:15 Urine Ketones 4+ (NEGATIVE) 12/01/22 22:15 Urine Blood 1+ (NEGATIVE) 12/01/22 22:15 Urine Nitrite Negative (NEGATIVE) 12/01/22 22:15 Urine Bilirubin Negative (NEGATIVE) 12/01/22 22:15 Urine Urobilinogen Normal (NORMAL) 12/01/22 22:15 Ur Leukocyte Esterase Negative (NEGATIVE) 12/01/22 22:15 Urine RBC 0-2 /HPF (0-3) 12/01/22 22:15 Urine WBC None seen /HPF (0-5) 12/01/22 22:15 Ur Squamous Epith Cells Rare /HPF (NEGATIVE) 12/01/22 22:15 Urine Bacteria Negative /HPF (NEGATIVE) 12/01/22 22:15 Hyaline Casts Few /LPF (NEGATIVE) 12/01/22 22:15 Urine Mucus Many /HPF (NEGATIVE) 12/01/22 22:15 Ur Culture Indicated? No/not indicated 12/01/22 22:15 Urine Opiates Screen Negative (NEG=<300) 12/01/22 22:15 Urine Methadone Screen Positive (NEG=<300) 12/01/22 22:15 Ur Barbiturates Screen Negative (NEG=<200) 12/01/22 22:15 Ur Phencyclidine Scrn Negative (NEG=<25) 12/01/22 22:15 Ur Amphetamines Screen Negative (NEG=<1000) 12/01/22 22:15 U Benzodiazepines Scrn Negative (NEG=<200) 12/01/22 22:15 Urine Cocaine Screen Negative (NEG=<300) 12/01/22 22:15 U Marijuana (THC) Screen Positive (NEG=<50) A 12/01/22 22:15 XRAY X-ray Results: HISTORY PT BROUGHT IN BY EMS COMPLAIING OF NAUSEA,VOMITING AND ABDOMINAL PAIN SINCE 11AM THIS MORNING. PT DOES HAVE HISTORY OF PANCREATITIS. STUDY ABDOMEN/PELVIS WITH CON COMPARISON CT examination abdomen and pelvis without contrast December 26, 2020 TECHNIQUE Multiple axial images of the abdomen and pelvis were obtained from the lung bases to the pubic symphysis AFTER the administration of IV contrast. Dose reduction techniques including Automated Exposure Control (AEC) and adjustment of mA and kV were utilized. FINDINGS The lung bases are clear. The abdominal aorta tapers normally. Some motion artifact reduces sensitivity. No liver mass. Clips from prior cholecystectomy. Normal adrenal glands. Normal renal enhancement. Normal spleen with splenule. Noninflamed pancreas. Normal stomach and duodenal C sweep. Normal appendix. The colon is not inflamed. No pelvic free fluid. The right testicle is partially within the right inguinal canal. Clinical correlation is needed to exclude possible nondistended testicle. The ureters taper normally. No obstructive uropathy. Normal appearance of the urinary bladder. No lymphadenopathy. No suspicious bony lesion. IMPRESSION No focal inflammatory process. Nothing acute. The right testicle is partially within the right inguinal canal and may be retracted or undescended. Clinical correlation needed. Electronically signed by: Gordy Perez (December 01, 2022 22:37:39) Opioid Opioid Risk Tool Age (Omer box if 16-45): No History of Preadolescent Sexual Abuse: No Total: 0 Total Score Risk Category: Low Risk Copyright: Walter ROCHA predicting aberrant behaviors Discharge Plan Diagnosis Discharge Problem: Intractable nausea and vomiting Discharge Plan Patient Disposition: 09 ADMITTED INPATIENT Condition: Stable Prescriptions: No Action NK Health Concerns: Post Hospitalization: new medications and changes needed to prevent readmission or further decline. Pt educated and given instructions on all concerns. Plan of Treatment: Continue with present treatment and follow up plan. Pt is to keep follow up appointment as instructed and take medications as ordered. Orders to Discharge Patient Discharge Orders: Transfer (Routine); Ordered 12/02/22 Ordered By: Ashley Jean-Baptiste Follow ups/Referrals Follow ups/Referrals: NFD,None [Primary Care Provider] - 3 days
[2022-12-01] MEDS ORDERED: PEPCID 20 MG VIAL IVP ONE (20:23)
[2022-12-01] MEDS ORDERED: NS 1,000 ML IV 1,000 ML IV ONE (20:23)
[2022-12-01] MEDS ORDERED: MORPHINE SULFATE INJ 2 MG INJ IVP ONE ×4 (20:26→23:57)
[2022-12-01] MEDS ORDERED: NS 50 ML IV 50 ML IV ONE (20:28)
[2022-12-01] MEDS ORDERED: NS 1,000 ML IV 1,000 ML ONE (20:28)
[2022-12-01] MEDS ORDERED: MORPHINE SULFATE INJ 2 MG INJ ONE ×3 (20:28→23:59)
[2022-12-01] MEDS ORDERED: ZOFRAN INJ 4 MG VIAL ONE ×3 (20:28→23:59)
[2022-12-01] MEDS ORDERED: PEPCID 20 MG VIAL ONE (20:29)
[2022-12-01 20:52] LABS: BASOPHILS # (AUTO) 0.1 X10^3/uL (0.0-0.1); BASOPHILS % (AUTO) 0.4 % (0.2-1.0); EOSINOPHILS % (AUTO) 0.1 % (0.9-2.9); HEMATOCRIT 45.9 % (42.0-54.0); HEMOGLOBIN 16.1 g/dL (13.5-18.0); LYMPHOCYTES # (AUTO) 1.2 X10^3/uL (1.3-2.9); LYMPHOCYTES % (AUTO) 7.8 % (21.0-51.0); MEAN CORPUSCULAR HEMOGLOBIN 31.2 pg (27.0-34.0); MEAN CORPUSCULAR HGB CONC 35.1 g/dL (33.0-35.0); MEAN CORPUSCULAR VOLUME 88.9 fL (80.0-100.0); MEAN PLATELET VOLUME 8.2 fL (7.4-11.0); MONOCYTES # (AUTO) 0.5 x10^3/uL (0.3-0.8); MONOCYTES % (AUTO) 3.3 % (0.0-13.0); NEUTROPHILS # (AUTO) 13.6 x10^3/uL (2.2-4.8); NEUTROPHILS % (AUTO) 88.4 % (42.0-75.0); PLATELET COUNT 314 X10^3/uL (150.0-450.0); RED BLOOD COUNT 5.16 X10^6/uL (4.7-6.0); RED CELL DISTRIBUTION WIDTH 13.2 % (11.6-16.5); WHITE BLOOD COUNT 15.4 X10^3/uL (3.6-10.0)
[2022-12-01 21:04] LABS: ALANINE AMINOTRANSFERASE 36 Units/L (12-78); ALBUMIN 4.2 g/dL (3.4-5.0); ALKALINE PHOSPHATASE 114 Units/L (46-116); AMYLASE 615 Units/L (25-115); ASPARTATE AMINO TRANSFERASE 17 Units/L (15-37); BLOOD UREA NITROGEN 11 mg/dL (7-18); CALCIUM 9.5 mg/dL (8.5-10.1); CARBON DIOXIDE 24.9 mmol/L (21-32); CHLORIDE 100 mmol/L (98-107); COR NA(FOR HYPERGLY) 137 mmol/L (136-145); CREATININE 1.06 mg/dL (0.70-1.30); GLUCOSE 150 mg/dL (65-99); POTASSIUM 4.3 mmol/L (3.5-5.1); SODIUM 136 mmol/L (136-145); TOTAL PROTEIN 8.1 g/dL (6.4-8.2); eGFR NON BLACK RACES > 60 (>60)
[2022-12-01 21:07] LABS: LACTIC ACID 1.3 mmol/L (0.4-2.0)
[2022-12-01 21:24] LABS: LIPASE 2917 Units/L (73-393)
[2022-12-01 22:26] LABS: BILIRUBIN,URINE NEGATIVE (NEGATIVE); BLOOD/HEMOGLOBIN,URINE 1+ (NEGATIVE); GLUCOSE, URINE NEGATIVE (NEGATIVE); KETONES,URINE 4+ (NEGATIVE); LEUKOCYTE ESTERASE ,URINE NEGATIVE (NEGATIVE); NITRITES,URINE NEGATIVE (NEGATIVE); PROTEIN,URINE 2+ (NEGATIVE); UROBILINOGEN,URINE NORMAL (NORMAL)
[2022-12-01 22:28] LABS: APPEARANCE,URINE CLEAR (CLEAR); COLOR,URINE DARK YELLOW (YELLOW)
[2022-12-01 22:36] LABS: BACTERIA,URINE NEGATIVE /HPF (NEGATIVE); HYALINE CASTS, URINE FEW /LPF (NEGATIVE); RBC,URINE 0-2 /HPF (0-3); SQUAMOUS EPITHELIAL CELL,UR RARE /HPF (NEGATIVE)
--- NOTE | 2022-12-01 22:39 | CT ---
HISTORYPT BROUGHT IN BY EMS COMPLAIING OF NAUSEA,VOMITING AND ABDOMINAL PAIN SINCE 11AM THIS MORNING. PT DOES HAVE HISTORY OF PANCREATITIS.STUDYABDOMEN/PELVIS WITH CONCOMPARISONCT examination abdomen and pelvis without contrast December 26, 2020TECHNIQUEMultiple axial images of the abdomen and pelvis were obtained from the lung bases to the pubic symphysis AFTER the administration of IV contrast. Dose reduction techniques including Automated Exposure Control (AEC) and adjustment of mA and kV were utilized.FINDINGSThe lung bases are clear. The abdominal aorta tapers normally. Some motion artifact reduces sensitivity.No liver mass. Clips from prior cholecystectomy. Normal adrenal glands. Normal renal enhancement. Normal spleen with splenule. Noninflamed pancreas. Normal stomach and duodenal C sweep.Normal appendix. The colon is not inflamed. No pelvic free fluid. The right testicle is partially within the right inguinal canal. Clinical correlation is needed to exclude possible nondistended testicle.The ureters taper normally. No obstructive uropathy. Normal appearance of the urinary bladder. No lymphadenopathy.No suspicious bony lesion.IMPRESSIONNo focal inflammatory process. Nothing acute.The right testicle is partially within the right inguinal canal and may be retracted or undescended. Clinical correlation needed.Electronically signed by: Gordy Perez (December 01, 2022 22:37:39)
[2022-12-02] MEDS ORDERED: MORPHINE SULFATE INJ 2 MG INJ IVP PRN (01:08)
[2022-12-02] MEDS ORDERED: ZOFRAN INJ 4 MG VIAL IVP PRN ×2 (01:08→01:36)
[2022-12-02 02:41] VITALS: BMI 31.4
[2022-12-02] MEDS: MORPHINE SULFATE INJ 2 MG INJ IVP PRN ×2 (03:50→07:51)
[2022-12-02 06:13] LABS: BASOPHILS # (AUTO) 0.1 X10^3/uL (0.0-0.1); BASOPHILS % (AUTO) 0.4 % (0.2-1.0); HEMATOCRIT 44.9 % (42.0-54.0); LYMPHOCYTES # (AUTO) 1.7 X10^3/uL (1.3-2.9); LYMPHOCYTES % (AUTO) 11.5 % (21.0-51.0); MEAN CORPUSCULAR HEMOGLOBIN 31.6 pg (27.0-34.0); MEAN CORPUSCULAR HGB CONC 35.6 g/dL (33.0-35.0); MEAN CORPUSCULAR VOLUME 88.7 fL (80.0-100.0); MEAN PLATELET VOLUME 8.4 fL (7.4-11.0); MONOCYTES # (AUTO) 0.5 x10^3/uL (0.3-0.8); MONOCYTES % (AUTO) 3.7 % (0.0-13.0); NEUTROPHILS # (AUTO) 12.2 x10^3/uL (2.2-4.8); NEUTROPHILS % (AUTO) 84.4 % (42.0-75.0); PLATELET COUNT 322 X10^3/uL (150.0-450.0); RED BLOOD COUNT 5.06 X10^6/uL (4.7-6.0); RED CELL DISTRIBUTION WIDTH 13.1 % (11.6-16.5); WHITE BLOOD COUNT 14.4 X10^3/uL (3.6-10.0)
[2022-12-02 06:49] LABS: ALANINE AMINOTRANSFERASE 33 Units/L (12-78); ALBUMIN 4.4 g/dL (3.4-5.0); ALKALINE PHOSPHATASE 111 Units/L (46-116); ASPARTATE AMINO TRANSFERASE 17 Units/L (15-37); BLOOD UREA NITROGEN 9 mg/dL (7-18); CALCIUM 9.5 mg/dL (8.5-10.1); CARBON DIOXIDE 21.6 mmol/L (21-32); CHLORIDE 100 mmol/L (98-107); COR NA(FOR HYPERGLY) 137 mmol/L (136-145); CREATININE 0.99 mg/dL (0.70-1.30); GLUCOSE 118 mg/dL (65-99); POTASSIUM 3.9 mmol/L (3.5-5.1); SODIUM 137 mmol/L (136-145); TOTAL PROTEIN 8.3 g/dL (6.4-8.2); eGFR NON BLACK RACES > 60 (>60)
[2022-12-02 08:22] VITALS: BP 136/85
--- NOTE | 2022-12-03 10:41 | DR.SSS ---
SHORT STAY SUMMARY Admission Date Date of Admission: 12/01/22 Discharge Date Discharge Date: 12/02/22 Admission Diagnoses Admission Diagnoses: Acute pancreatitis Discharge Diagnoses Discharge Diagnoses: Acute pancreatitis Chief Complaint Chief Complaint: Abdominal pain Nausea/vomiting History of Present Illness History of Present Illness: Pt is a 27 year old male presenting with abdominal pain, nausea, and vomiting that started on yesterday. He reports epigastric pain that is sharp and non-radiating. He reports having history since childhood of pancreatitis but does not recall exactly why or if there was work up of it in childhood. He denies alcohol use. Past Medical History Past Medical History: Anxiety, Depression and Sleep Apnea Additional Medical History: CHRONIC PANCREATITIS Past Surgical History Surgical History: Cholecystectomy Allergies Allergies Allergy/AdvReac Type Severity Reaction Status Date / Time No Known Drug Allergies Allergy Verified 07/29/21 17:27 Medications Home Medications: No Known Drug Allergies Allergy (Verified 07/29/21 17:27) Family History Family Medical History: Cancer Social History Does patient currently use any type of tobacco product: No Have you used tobacco products in the last 12 months: No Type of Tobacco Use: None Alcohol Use: None Review of Systems Constitutional: No Symptoms Reported Eyes: No Symptoms Reported ENT: No Symptoms Reported Respiratory: No Symptoms Reported Cardiovascular: No Symptoms Reported Gastrointestinal: Nausea, Vomiting and Abdominal Pain Genitourinary: No Symptoms Reported Musculoskeletal: No Symptoms Reported Skin: No Symptoms Reported Neurological: No Symptoms Reported Physical Exam Vital Signs: Last Vital Signs Temp 98.2 F 12/02/22 08:00 Pulse 66 12/02/22 08:00 Resp 20 12/02/22 08:21 BP 136/85 12/02/22 08:00 Pulse Ox 100 12/02/22 08:00 O2 Del Method Room Air 12/02/22 08:00 Oriented: Normal Eyes: Normal Respiratory: Clear Throughout Cardiovascular: Normal Auscultation: Bowel Sounds: Normal Palpation: Normal Tenderness: Epigastric and Moderate Skin: Normal Musculoskeletal: Normal Psychiatric: Normal Speech Pattern: Clear Labs Labs: Laboratory Last Values WBC 14.4 X10^3/uL (3.6-10.0) H 12/02/22 05:44 RBC 5.06 X10^6/uL (4.7-6.0) 12/02/22 05:44 Hgb 16.0 g/dL (13.5-18.0) 12/02/22 05:44 Hct 44.9 % (42.0-54.0) 12/02/22 05:44 MCV 88.7 fL (80.0-100.0) 12/02/22 05:44 MCH 31.6 pg (27.0-34.0) 12/02/22 05:44 MCHC 35.6 g/dL (33.0-35.0) H 12/02/22 05:44 RDW 13.1 % (11.6-16.5) 12/02/22 05:44 Plt Count 322 X10^3/uL (150.0-450.0) 12/02/22 05:44 MPV 8.4 fL (7.4-11.0) 12/02/22 05:44 Neut % (Auto) 84.4 % (42.0-75.0) H 12/02/22 05:44 Lymph % (Auto) 11.5 % (21.0-51.0) L 12/02/22 05:44 [place] % (Auto) 3.7 % (0.0-13.0) 12/02/22 05:44 Eos % (Auto) 0.0 % (0.9-2.9) L 12/02/22 05:44 Baso % (Auto) 0.4 % (0.2-1.0) 12/02/22 05:44 Neut # (Auto) 12.2 x10^3/uL (2.2-4.8) H 12/02/22 05:44 Lymph # (Auto) 1.7 X10^3/uL (1.3-2.9) 12/02/22 05:44 [place] # (Auto) 0.5 x10^3/uL (0.3-0.8) 12/02/22 05:44 Eos # (Auto) 0.0 x10^3/uL (0.0-0.2) 12/02/22 05:44 Baso # (Auto) 0.1 X10^3/uL (0.0-0.1) 12/02/22 05:44 Absolute Nucleated RBC 0.0 /100WBC 12/02/22 05:44 Sodium 137 mmol/L (136-145) 12/02/22 05:44 Corrected Sodium 137 mmol/L (136-145) 12/02/22 05:44 Potassium 3.9 mmol/L (3.5-5.1) 12/02/22 05:44 Chloride 100 mmol/L (98-107) 12/02/22 05:44 Carbon Dioxide 21.6 mmol/L (21-32) 12/02/22 05:44 BUN 9 mg/dL (7-18) 12/02/22 05:44 Creatinine 0.99 mg/dL (0.70-1.30) 12/02/22 05:44 Est GFR (MDRD) Af Amer > 60 (>60) 12/02/22 05:44 Est GFR (MDRD) Non-Af > 60 (>60) 12/02/22 05:44 Glucose 118 mg/dL (65-99) H 12/02/22 05:44 POC Glucose (mg/dL) 115 mg/dL (65-99) H 12/02/22 05:45 Lactic Acid 1.3 mmol/L (0.4-2.0) 12/01/22 20:40 Calcium 9.5 mg/dL (8.5-10.1) 12/02/22 05:44 Corrected Calcium TNP 12/02/22 05:44 Total Bilirubin 0.50 mg/dL (0.2-1.0) 12/02/22 05:44 AST 17 Units/L (15-37) 12/02/22 05:44 ALT 33 Units/L (12-78) 12/02/22 05:44 Alkaline Phosphatase 111 Units/L (46-116) 12/02/22 05:44 C-Reactive Protein 5.60 mg/L (0-3.0) H 12/01/22 20:40 Total Protein 8.3 g/dL (6.4-8.2) H 12/02/22 05:44 Albumin 4.4 g/dL (3.4-5.0) 12/02/22 05:44 Globulin 3.9 g/dL (2.5-4.5) 12/02/22 05:44 Albumin/Globulin Ratio 1.1 Ratio (1.1-2.1) 12/02/22 05:44 Amylase 615 Units/L (25-115) H 12/01/22 20:40 Lipase 2917 Units/L (73-393) H 12/01/22 20:40 Specimen Type Random urine 12/01/22 22:15 Urine Color Dark yellow (YELLOW) 12/01/22 22:15 Urine Appearance Clear (CLEAR) 12/01/22 22:15 Urine pH 6.0 (5.0 - 8.0) 12/01/22 22:15 Ur Specific [place] 1.010 (1.000-1.030) 12/01/22 22:15 Urine Protein 2+ (NEGATIVE) 12/01/22 22:15 Urine Glucose (UA) Negative (NEGATIVE) 12/01/22 22:15 Urine Ketones 4+ (NEGATIVE) 12/01/22 22:15 Urine Blood 1+ (NEGATIVE) 12/01/22 22:15 Urine Nitrite Negative (NEGATIVE) 12/01/22 22:15 Urine Bilirubin Negative (NEGATIVE) 12/01/22 22:15 Urine Urobilinogen Normal (NORMAL) 12/01/22 22:15 Ur Leukocyte Esterase Negative (NEGATIVE) 12/01/22 22:15 Urine RBC 0-2 /HPF (0-3) 12/01/22 22:15 Urine WBC None seen /HPF (0-5) 12/01/22 22:15 Ur Squamous Epith Cells Rare /HPF (NEGATIVE) 12/01/22 22:15 Urine Bacteria Negative /HPF (NEGATIVE) 12/01/22 22:15 Hyaline Casts Few /LPF (NEGATIVE) 12/01/22 22:15 Urine Mucus Many /HPF (NEGATIVE) 12/01/22 22:15 Ur Culture Indicated? No/not indicated 12/01/22 22:15 Urine Opiates Screen Negative (NEG=<300) 12/01/22 22:15 Urine Methadone Screen Positive (NEG=<300) 12/01/22 22:15 Ur Barbiturates Screen Negative (NEG=<200) 12/01/22 22:15 Ur Phencyclidine Scrn Negative (NEG=<25) 12/01/22 22:15 Ur Amphetamines Screen Negative (NEG=<1000) 12/01/22 22:15 U Benzodiazepines Scrn Negative (NEG=<200) 12/01/22 22:15 Urine Cocaine Screen Negative (NEG=<300) 12/01/22 22:15 U Marijuana (THC) Screen Positive (NEG=<50) A 12/01/22 22:15 Hospital Course Hospital Course: Labs/imaging: Wbc 14.4, Hgb 16, Plt 322, Na 137, K 3.9, Creatinine 0.99, Glucose 118, Amylase 615, Lipase 2917, UA negative, UDS-positive for methadone, THC, CT abdomen and pelvis was obtained that revealed: No focal inflammatory process. Nothing acute. Pt has been NPO. Discussed orders and plan with patient. Pt wants to leave immediately, discussed risk without proper treatment. Pt states he has to go to work and must leave immediately. Pt signed out AMA. Discharge Medications Discharge Medications: Prescriptions: Discharge Disposition Discharge Disposition: AMA Discharge Plan Discharge Plan Patient Disposition: AGAINST MEDICAL ADVICE Condition: Stable Health Concerns: Post Hospitalization: new medications and changes needed to prevent readmission or further decline. Pt educated and given instructions on all concerns. Plan of Treatment: Continue with present treatment and follow up plan. Pt is to keep follow up appointment as instructed and take medications as ordered. Prescriptions: No Action NK Follow ups/Referrals Follow ups/Referrals: NFD,None [Primary Care Provider] - 3 days
== END 2022-12-02 08:20 | disposition left against medical advice (07) ==
LOC: ER 20:08 → MED/SURG 20:08
PROVIDERS: ADMIT Family Medicine; ATTEND Family Medicine